=== PATIENT | female | born 1955 | race Caucasian/White ===

== ENCOUNTER 2020-05-20 05:14 | Inpatient (IN) ==
--- NOTE | 2020-05-01 14:24 | PAT Medication Instructions ---
Medication Instructions Date of Service May 01, 2020 Home Medications calcium 500 mg PO QAM glucos sul [id number]-Mn [Glucosamine Chondroitin] 1 cap PO QAM sodium hyaluronate [Hyaluronic Acid (sodium)] 20 mg PO QAM STOP taking 2 weeks before surgery If surgery is within 2 weeks, stop taking as soon as possible. glucos sul [id number]-C-Mn [Glucosamine Chondroitin] 1 cap PO QAM sodium hyaluronate [Hyaluronic Acid (sodium)] 20 mg PO QAM DO NOT take the morning of surgery calcium 500 mg PO QAM Other Notes If you have any questions please call us at [phone] or [phone] or [phone] or [phone]
--- NOTE | 2020-05-04 14:38 | Anesthesiology Consultation ---
Date of Service May 04, 2020 Assessment & Plan (1) Encounter for pre-operative examination: - Per assessment on 05/04: Travel screen- lives in [facility]. Return from travel to [place], [place] 04/18. No known COVID-19 positive contacts or current COVID-19 related symptoms. Surgeon arranging preop COVID testing. Awaiting results. - LUE limb restriction s/p left lumpectomy Chart Review Chart Review: Acceptable Risk for Surgery (pending preop labs (done at [facility])) and Patient seen in Pre Admission Testing Teaching & Discussion Pre-Anesthesia Teaching/Discussion Notes: Instructed NPO after midnight before surgery,except medications with 15 cc of water. Medication instructions provided according to the PAT guidelines. History Surgery Operation Date: 05/20/20 12:00 Proposed Procedures p Right Ankle Total Ankle Arthroplasty, - Jose Alejandro Quinn DO s Percutaneous Tendon Achilles Lengthening, Application of Platelet-Rich - Jose Alejandro Quinn DO Height/Weight Height: 5 ft 4 in Weight: 113.7 kg Allergies Allergy/AdvReac Type Severity Reaction Status Date / Time paclitaxel Allergy Intermediate numbness Verified 05/04/20 15:44 in fingers/feet Medications Home Medications Medication Instructions Recorded Confirmed Last Taken calcium 500 mg PO QAM 04/16/20 04/16/20 Unknown glucos sul [id number]-C-Mn 1 cap PO QAM 04/16/20 04/16/20 Unknown [Glucosamine Chondroitin] sodium hyaluronate [Hyaluronic 20 mg PO QAM 04/16/20 04/16/20 Unknown Acid (sodium)] Past Medical History Medical History Heartburn controlled History of TMJ disorder HX: breast cancer left s/p lumpectomy, chemo, XRT Osteoarthritis Peripheral neuropathy mild Prediabetes Sleep apnea CPAP Exercise / Class Metabolic Activity III < 4 Walking/Shop/Light housework Past Family History Family History Father Family history of diabetes mellitus Past Surgical History Surgical History H/O total hysterectomy History of carpal tunnel release RT/LEFT History of section X 1 History of cholecystectomy History of colonoscopy Hx of lumpectomy LEFT [place] teeth removed Past Anesthesia History No Hx of Anesthesia Complications and No Family Hx of Anesthesia Complications History of PONV No Hx of PONV and No Hx of Motion Sickness Social History Smoking Status: Never smoker Do You Dip or Chew Tobacco: No Hx Alcohol Use: Yes Alcohol type: beer and hard liquor alcohol intake frequency: a few times a week Hx Substance Use: No substance use type: does not use Review of Systems Patient denies chest pain, shortness of breath, dyspnea on exertion, joint pain, reflux, cough, wheezing, palpitations. Physical Exam Vital Signs VITALS BP 130/71 P 73 TEMP 98.0 SP02 97%RA RESP 18 PHYSICAL Full neck and c-spine range of motion. Full TMJ range of motion. TMD 3.5 finger breaths Mallampati Score 3 Dentition: 3 missing teeth sides/molars, few crowns upper right side Lungs: clear throughout to auscultation Cardiac: regular rate and rhythm, no murmurs noted Spine: normal Carotid arteries: negative bruit Extremities: no edema Testing Laboratory Results Blood Type A Positive 05/04/20 15:01 Antibody Screen NEGATIVE 05/04/20 15:01 Electrocardiogram Date: 05/04/20 NSR at 71bpm. unconfirmed report. Chest X-Ray Date: 05/04/20 Findings: + NAD
--- NOTE | 2020-05-04 15:42 | XRay Report ---
XR chest Pre-admission PA/Lat CLINICAL HISTORY: Preoperative chest COMPARISON STUDY: No previous studies for comparison. FINDINGS: The cardiac and mediastinal contours are normal. There is no evidence of focal pulmonary co nsolidation. There is no evidence of failure. No pleural effusions are visualized.[ IMPRESSION: No active disease in the chest. ACT 112: Negative or not required by law. Electronically signed by: Parminder Chapa M.D. 05/04/2020 3:40 PM
--- NOTE | 2020-05-05 21:57 | Electrocardiogram Report ---
Test Reason : Blood Pressure : / mmHG Vent. Rate : 071 BPM Atrial Rate : 071 BPM P-R Int : 176 ms QRS Dur : 086 ms QT Int : 412 ms P-R-T Axes : 063 045 042 degrees QTc Int : 447 ms Normal sinus rhythm Normal ECG No previous ECGs available Confirmed by Liang Carr ([id number]) on 05/05/2020 9:56:43 PM Referred By: Jose Alejandro Quinn Confirmed By:Liang Carr
--- NOTE | 2020-05-20 05:55 | History & Physical Report ---
Date of Service May 20, 2020 Assessment & Plan (1) Primary osteoarthritis, right ankle and foot: Schedule a Right Ankle Total Ankle Arthroplasty, Percutaneous Tendon Achilles Lengthening, Application of Platelet Rich Plasma for 05.20.2020. All potential risks, benefits, complications, alternatives, and rehab have been discussed with the patient and she wishes to proceed. Plan for ASA 81 mg BID x 30 days post op for DVT prophylaxis. (2) Contracture of right Achilles tendon: History of Present Illness Chief Complaint: right ankle pain Primary Care Provider: Gray Drake PA-C This is a patient with a long hx of right ankle pain. She was treated conservatively for right ankle osteoarthritis which was beneficial for a long time. However, she has failed all conservative management. She is now being set up for surgical tx. Allergies Allergy/AdvReac Type Severity Reaction Status Date / Time paclitaxel Allergy Intermediate numbness Verified 05/20/20 05:56 in fingers/feet Home Medications Home Medications Medication Instructions Recorded Confirmed Type calcium 500 mg PO QAM 04/16/20 04/16/20 History glucos sul [id number]-C-Mn 1 cap PO QAM 04/16/20 04/16/20 History [Glucosamine Chondroitin] sodium hyaluronate [Hyaluronic 20 mg PO QAM 04/16/20 04/16/20 History Acid (sodium)] ibuprofen-diphenhydramine HCl 1 cap PO HS PRN 05/20/20 05/20/20 History [Ibuprofen PM] Past Med/Surg History Medical History Heartburn controlled History of TMJ disorder HX: breast cancer left s/p lumpectomy, chemo, XRT Osteoarthritis Peripheral neuropathy mild Prediabetes Sleep apnea CPAP Surgical History H/O total hysterectomy History of carpal tunnel release RT/LEFT History of section X 1 History of cholecystectomy History of colonoscopy Hx of lumpectomy LEFT [place] teeth removed Family History Father Family history of diabetes mellitus Social History Smoking Status: Never smoker Second Hand Exposure: Yes ( A CHILD); Do You Dip or Chew Tobacco: No; Tobacco Cessation Education Requested by Patient: No Hx Alcohol Use: Yes Alcohol type: beer and hard liquor Hx Substance Use: No Preferred Language: Serbian Marzipan Molder Required: No Beliefs That Will Affect Care: None Current Living Situation: Spouse Feels Safe at Home: Yes Safety Concerns: Feels Safe At This Time Physical Exam Constitutional: well developed, well nourished and + obese; no acute distress ENMT: external ear and nose normal, oropharynx normal Neck: trachea midline, no thyromegaly Respiratory: normal respiratory effort, lungs clear to auscultation Cardiovascular: Rate/Rhythm: regular rate and regular rhythm Gastrointestinal (Abdomen): normal bowel sounds, soft, nontender, no hepatosplenomegaly Musculoskeletal: Gait: + antalgic gait (right) Ankle: + effusion (mild right), + limited ROM of ankle (right ankle, particularly dorsiflexion), + ankle ROM with crepitation (right) and + joint line tenderness (ankle) (anterior right ankle); no skin erythema and no ecchymosis Skin: no rashes, warm and dry Neurologic: normal touch/pain/proprioception Psychiatric: A+Ox3, euthymic affect Speech: normal rate/rhythm/volume of speech Lymphatic: no cervical or axillary lymphadenopathy
[2020-05-20] MEDS ORDERED: METOCLOPRAMIDE HCL 10 MG TABLET PO SCH (06:00)
[2020-05-20] MEDS ORDERED: FAMOTIDINE 20 MG TAB PO SCH (06:00)
[2020-05-20] MEDS ORDERED: CEFAZOLIN 2000MG 2,000 MG/15 ML SYR IV SCH (06:00)
[2020-05-20] MEDS ORDERED: OXYCODONE HCL 10 MG TABCR (OXYCONTIN) PO SCH (06:00)
[2020-05-20] MEDS ORDERED: dexAMETHasone 4 MG TAB PO SCH (06:00)
[2020-05-20] MEDS ORDERED: LR 15ML/HR IV SCH (06:00)
[2020-05-20] MEDS ORDERED: CeleBREX 200 MG CAP PO SCH (06:00)
[2020-05-20] MEDS ORDERED: GABAPENTIN 600 MG DOSE PO SCH (06:00)
[2020-05-20] MEDS ORDERED: ACETAMINOPHEN 500 MG TAB PO SCH (06:00)
[2020-05-20] MEDS ORDERED: ROPIVACAINE 0.5% 5 MG/ML 30 ML VIAL ONE (06:24)
[2020-05-20] MEDS ORDERED: ATROPINE SULFATE 0.1 MG/ML 10ML SYR IV PRN (06:45)
[2020-05-20] MEDS ORDERED: ONDANSETRON INJ 2 MG/ML 2 ML VIAL IV PRN ×2 (06:45→13:02)
[2020-05-20] MEDS ORDERED: fentaNYL citrate 100 MCG/2 ML VIAL IV PRN (06:45)
[2020-05-20] MEDS ORDERED: ePHEDrine sulfate 50 MG/ML AMP IV PRN (06:45)
[2020-05-20] MEDS ORDERED: HYDROmorphone INJ 1 MG/ML SYRINGE IV PRN (06:45)
[2020-05-20] MEDS ORDERED: ONDANSETRON INJ 2 MG/ML 2 ML VIAL ONE (06:48)
[2020-05-20] MEDS ORDERED: LIDOCAINE HCL 2% 2 ML VIAL/AMP(20MG/ML) INFIL ONE (06:48)
[2020-05-20] MEDS ORDERED: GLYCOPYRROLATE 0.2 MG/ML VIAL ONE (06:48)
[2020-05-20] MEDS ORDERED: PROPOFOL IV EMULSION 10 MG/ML 20 ML VIAL IV ONE (06:48)
[2020-05-20] MEDS ORDERED: DEXAMETHASONE SOD INJ 4 MG/ML VIAL ONE (06:48)
[2020-05-20] MEDS ORDERED: NEOSTIGMINE METHYLSULFATE 5 MG/5 ML SYR ONE (06:48)
[2020-05-20] MEDS ORDERED: fentaNYL citrate 100 MCG/2 ML VIAL ONE ×3 (06:50→10:49)
[2020-05-20] MEDS ORDERED: MIDAZOLAM HCL 1 MG/ML 2ML VIAL ONE (06:50)
[2020-05-20] MEDS ORDERED: THROMBIN 5000 UNITS KIT ONE (07:31)
[2020-05-20] MEDS ORDERED: BACITRACIN INJ 50,000 UNIT VIAL ONE (07:31)
[2020-05-20] MEDS ORDERED: CALCIUM CHLORIDE 10% 10 ML SYR IV ONE (07:31)
--- NOTE | 2020-05-20 08:25 | History & Physical Bridge Note ---
Date of Service May 20, 2020 History & Physical Bridge Note I have examined the patient, reviewed the History & Physical and in the interval since the performance of the History & Physical I have noted the following changes of clinical significance: no changes noted
--- NOTE | 2020-05-20 11:10 | Fluoroscopy Report ---
FL ankle RT 2V CLINICAL HISTORY: Ankle arthroplasty COMPARISON STUDY: None FLUOROSCOPY TIME: 71 seconds. NUMBER OF FLUOROSCOPIC IMAGES: 2 FINDINGS: 2 intraoperative fluoroscopic spot images reveal postsurgical changes of a total right ankl e arthroplasty. There are mild degenerative changes present within the subtalar joint. There is a jean-paul ntar calcaneal spur. Small lucencies within the distal tibia are likely postsurgical. IMPRESSION: Intraoperative fluoroscopic spot images demonstrating a total right ankle arthroplasty. ACT 112: Negative or not required by law. Electronically signed by: Parminder Chapa M.D. 05/20/2020 11:08 AM
--- NOTE | 2020-05-20 11:35 | Post Operative Brief Note ---
Immediate Post Op Note v1 Date of Surgery May 20, 2020 Pre & Post Diagnosis Operation Date: 05/20/20 07:30 Pre-Op Diagnosis: Right ankle osteoarthritis, degenerative arthritis ankle, Achilles tendon contracture right Ankle Post-Op Diagnosis: Right ankle osteoarthritis, degenerative arthritis ankle, Achilles tendon contracture right Ankle I identified the patient and participated in the time-out.: Yes Procedure Operation Date: 05/20/20 07:30 Actual Procedures p Right Ankle Total Ankle Arthroplasty with STAR total ankle replacement components: Extra small talus, medium tibial plate, 8 mm polyethylene,(Right) - Jose Alejandro Quinn DO s Right Percutaneous Tendon Achilles Lengthening, Application of Platelet Rich Plasma concentrate (Right) - Jose Alejandro Quinn DO Surgeon Jose Alejandro Quinn DO Supervisor Rod Placing Silvano Carvalho PA-C Estimated Blood Loss 10 Findings Consistent with Post-Op Diagnosis Specimens Bone and tissue right ankle Drains Hemovac Drain Anesthesia Type General Regional Complications none Disposition Accompanied Patient To Recovery: No Disposition: Recovery Room
--- NOTE | 2020-05-20 11:59 | Operative Report (OR) ---
DATE OF OPERATION: 05/20/2020 PREOPERATIVE DIAGNOSES: 1. Right ankle osteoarthritis. 2. Degenerative joint disease of the right ankle. 3. Achilles tendon contracture. POSTOPERATIVE DIAGNOSES: 1. Right ankle osteoarthritis. 2. Degenerative joint disease of the right ankle. 3. Achilles tendon contracture. PROCEDURES: 1. Right STAR total ankle replacement using sizes extra small talus, medium tibia and an 8 mm polyethylene. 2. Percutaneous tendo-Achilles lengthening. 3. Application of platelet rich plasma concentrate. SURGEON: Jose Alejandro Quinn DO. WASHING TUB OPERATOR: Silvano Carvalho PA-C who was present for patient positioning, sterile prep and drape, management of retractors and instruments. He was present through the critical portions of the case including wound closure, application of sterile dressing and transport of the patient to recovery. ANESTHESIA: General LMA with popliteal block with adductor canal. SPECIMENS: Bone and tissue, right ankle. DRAINS: One Hemovac. COMPLICATIONS: None. BLOOD LOSS: 10 mL. PERTINENT HISTORY: This is a 65-year-old woman who has had chronic progressive and worsening degenerative ankle arthritis over the last 5-7 years. She has attempted and failed conservative management including use of a brace, steroid injections, anti-inflammatories, rest, modification of activities, physician-directed home exercises, formalized physical therapy, ice, elevation and rest. She was using a cane over the last several months because the pain became so severe. Radiographs demonstrate complete plga-ru-erdg arthropathy of the right ankle, loss of joint space, marginal osteophytes, subchondral sclerosis and subchondral cysts. The patient was scheduled for surgery as indicated. DESCRIPTION OF PROCEDURE: The patient was taken to the operative suite after popliteal block was administered. The patient was placed supine on the operating room table. Tourniquet was applied over the right lower extremity. After the patient was anesthetized, LMA was placed. The right lower extremity was then sterilely prepped and draped in the usual sterile fashion [id number], elevated and exsanguinated with an Esmarch bandage, and tourniquet inflated to 350 mmHg. Next, a 15-blade scalpel incision made in the midline of the right ankle taking care to identify the tibialis anterior. The incision was made lateral to the tibialis anterior and centered over the extensor hallucis longus tendon. The incision was deepened through subcutaneous tissue. Meticulous hemostasis was achieved with electrocautery. Full-thickness skin flaps were developed. Superficial peroneal nerve was identified, retracted, and protected. Next, the extensor retinaculum was incised along the skin incision to the lateral aspect of the tibialis anterior. Tibialis anterior was retracted medially. The extensor hallucis longus and the neurovascular bundle beneath were retracted laterally. The small crossing vessels were cauterized. The anterior capsule was then incised in its midline and then elevated medially and laterally with electrocautery. Appropriate soft tissue retractors were placed carefully to maintain essentially zero skin tension on the superficial skin. After the capsule was elevated and retracted medially and laterally to visualize the medial and lateral malleoli clearly, rongeur was used to perform synovectomy and remove any excess debris and loose bodies. Next, the wound was irrigated and suctioned. Good visualization was obtained. At this point the anterior lip of hypertrophic bone was resected from the tibia with an osteotome and mallet followed by resection of a small osteophyte medially at the medial malleolus. Next, the tibial plafond could be clearly visualized. The neck of the talus was then rongeured down to the true neck of the talus after all hypertrophic osteophytes were excised. Next, attention was directed toward the proximal tibia at which point a 15-blade scalpel incision was made anterior of the tibial tubercle the inferior aspect using the external alignment guide as a guide for pin placement which was essentially in the midline of the tibia with a slight degree of plantar flexion. Guide was placed anteriorly using a small osteotome in the medial gutter of the ankle joint to signal helper in alignment. Next, the small 2.4 mm pin was placed adjacent to the tibial tubercle and the alignment guide was placed approximately one fingerbreadth above the soft tissue and fastened there at approximately four notches medialized proximally. Next, the T-handle guide was placed anteriorly and then this was aligned with the small osteotome and placed in the medial gutter of the ankle joint to make this parallel and then also the orientation of the second ray of the foot was used to guide as well. Next, the more proximal alignment block was pinned unicortically followed by placement of the lateral alignment guide on the tibial alignment jig and the T-handle was removed. Distal cutting block was then fastened to the distal aspect of the tibial alignment guide and then x-rays obtained in AP and lateral projections of the ankle and tibia assuring appropriate alignment of the tibial alignment guide and the tibial cutting block. After appropriate alignment was established, the distal cutting block was then pinned in place with two 2.4 mm pins, one in the proximal and then secondarily in the distal aspect of the tibial cutting guide and the tibial cutting guide was aligned at the inferior aspect at the level of the tibial plafond. Next, after the tibial cutting blocks were aligned and confirmed, the medial and lateral saw capture pins were placed followed by resection of the distal tibia with a sagittal saw. The pins were removed and the distal cutting guide was then removed followed by removal of the distal tibial cut fragment after it was morselized with a small osteotome and resected with a rongeur. A cervical lamina engraving press operator was placed in the ankle joint to open the ankle joint followed by resection of the posterior fragments from the distal tibia cut. Next, the talar cutting guide paddle was placed at the distal tibial cutting guide and fastened in place. The ankle was held in neutral dorsiflexion. Four pins were placed in the talar cutting block fixing the talus in appropriate alignment. Next, after the saw capture pins were placed, the sagittal saw was used to resect the superior aspect of the talus. The talar cutting block guide was then removed as well as the pins and talus. This was then followed by placement of datum guide which was initially placed as an extra small position with regard to position on the talus as well as orientation along the second ray. Central pin was placed and then the posterior capture cutting guide was attached and the anterior milling guide was also fastened with two football screws. Next, the anterior mill was used to resect the anterior aspect of the talar dome. Posterior cut was made. This jig was then removed followed by placement of the shoulder cutting guide and the reciprocating saw was just resect the shoulder portions of the talus using the laser cut line. This guide was then removed leaving the central pin followed by resection of the fragments using a small osteotome and mallet. This was then elevated and resected. Next, the window trial was firmly affixed to the superior aspect of the talus using fluoroscopic confirmation of alignment and position. Next, the central keel was drilled. The window trial was then removed following use of the central keel punch. This was also confirmed using fluoroscopic assistant plant controller. The wound was copiously irrigated with pulsatile lavage with Bacitracin additive followed by suctioning of the talar component. Platelet-rich plasma was injected at this time at the undersurface of the implant as well as in the talar dome. The final talar component was impacted in place with fluoroscopic assistance. Next, a trial polyethylene 6 mm was placed in the joint and the posterior aspect of the tibia was measured both medially and laterally. Appropriate size tibial drill guide was then placed and fastened with two pins. This was confirmed with x-ray and then the barrel drills x 2 were performed making certain to aim proximally. Next, the barrel cutting jig was then used to perform the final punch medially and laterally. The trial plate was then removed after appropriate sized polyethylene was sized. Next, the joint was copiously irrigated with pulsatile lavage followed by suctioning of all surfaces. The tibia was then injected with platelet-rich plasma as well as the superior aspect of the tibial final plate implant. This was then impacted in place with the trial polyethylene liner in place to ensure adequate positioning. Next, the final impactor was used to seat the tibial base tray flush with the anterior aspect of the tibia followed by bone grafting of the anterior barrel holes with local bone graft. This was impacted in place with a mallet and bone tamp. This then followed by confirmation with C-arm and then final polyethylene was inserted without difficulty. Excellent range of motion and stability was obtained. No liftoff was noted. The platelet-rich plasma was then sprayed within the joint and all surfaces and also into the subcutaneous tissue and deep soft tissue. A 10-[place] single-lumen Hemovac drain was placed anterolaterally followed by closure of the ankle joint capsule with #1 Vicryl. The extensor retinaculum was closed using interrupted 2-0 Vicryl, the dermis closed buried 3-0 Vicryl, and skin was closed using 4-0 nylon. A sterile compressive bulky Ashkan Black plaster splint was applied overwrapped with an Dennys wrap. Tourniquet was released. The patient was awakened and taken to recovery in stable condition. I attest to the content of the Intraoperative Record and any orders documented therein. Any exception s are noted below.
--- NOTE | 2020-05-20 12:43 | Anesthesiology Progress Note ---
Date of Service May 20, 2020 Anesthesia Post Procedure Vital Signs Vital Signs: Temp Pulse Pulse Resp BP Pulse Ox 05/20/20 12:30 90 13 147/86 H 98 05/20/20 12:25 97.2 F L 91 H 14 129/89 97 05/20/20 12:15 94 H 18 132/77 96 05/20/20 12:05 89 16 130/75 97 05/20/20 11:55 89 15 117/68 98 05/20/20 11:47 97.9 F 99 H 13 134/93 95 05/20/20 06:59 78 18 164/89 H 98 05/20/20 06:02 98.2 F 69 16 152/91 H 96 Pain Intensity Right Ankle: Pain Intensity: 0 Transfer of Care Handoff Completed per policy Notes Mental Status: alert / awake / arousable and participated in evaluation Patient Amnestic to Procedure: Yes Nausea / Vomiting: adequately controlled Pain: adequately controlled Airway Patency, RR, SpO2: stable & adequate BP & HR: stable & adequate Hydration State: stable & adequate Anesthetic Complications: no major complications apparent and Pt Satisfied with anesthetic care
--- NOTE | 2020-05-20 12:50 | XRay Report ---
XR ankle RT min 3V routine CLINICAL HISTORY: post op COMPARISON: None. DISCUSSION: There are postsurgical changes of a total right ankle arthroplasty. There are posterior s kin christiane. There is an overlying drain. There is a plantar calcaneal spur. There is an overlying ca st. IMPRESSION: Postsurgical changes of a total ankle arthroplasty. ACT 112: Negative or not required by law. Electronically signed by: Parminder Chapa M.D. 05/20/2020 12:48 PM
[2020-05-20] MEDS ORDERED: METOCLOPRAMIDE HCL INJ 5 MG/ML 2 ML VIAL IV PRN (13:02)
[2020-05-20] MEDS ORDERED: HYDROmorphone INJ 0.5 MG/0.5 ML SYR IV PRN (13:02)
[2020-05-20] MEDS ORDERED: NON-FORMULARY MEDICATION (Glucos Sul 2kcl-Msm-Chond-C-Mn [Glucosamine Chondroitin] 1 CAP) PO SCH (13:02)
[2020-05-20] MEDS ORDERED: OXYCODONE HCL IR 5 MG TAB (IMMEDIATE RELEASE) PO PRN (13:02)
[2020-05-20] MEDS ORDERED: bisacodyL 10 MG SUPP PR PRN (13:02)
[2020-05-20] MEDS ORDERED: SODIUM HYALURONATE PO SCH (13:02)
[2020-05-20] MEDS ORDERED: MAGNESIUM HYDROXIDE SUSP 30 ML UDC PO PRN (13:02)
[2020-05-20] MEDS ORDERED: NALOXONE HCL 0.4 MG/1 ML VIAL/CARP IV PRN (13:02)
[2020-05-20] MEDS: SODIUM CHLORIDE 0.9% 1000ML 1,000 ML IV SCH ×2 (14:22→23:42)
[2020-05-20] MEDS: DOCUSATE SODIUM 100 MG CAP PO SCH ×2 (14:22→20:13)
[2020-05-20] MEDS: ACETAMINOPHEN 500 MG TAB PO SCH ×2 (14:22→21:39)
[2020-05-20] MEDS: MULTIVITAMIN TAB PO SCH (14:22)
[2020-05-20] MEDS: KETOROLAC TROMETHAMINE 15 MG/ML VIAL IV SCH ×2 (14:23→20:14)
[2020-05-20] MEDS: CEFAZOLIN 2000MG 2,000 MG/15 ML SYR IV SCH ×2 (15:43→23:42)
[2020-05-20] MEDS ORDERED: SENNA 8.6 MG TAB PO SCH (21:00)
[2020-05-21] MEDS: KETOROLAC TROMETHAMINE 15 MG/ML VIAL IV SCH ×3 (03:11→14:02)
[2020-05-21 05:58] LABS: Hematocrit (blood only) 34.1 % (37-47); Hemoglobin 10.9 g/dL (12.0-16.0); Mean Corpuscular Hemoglobin 25.6 pg (25-34); Mean Corpuscular Volume 80.2 fL (80-100); Mean Platelet Volume 10.7 fL (7.4-10.4); Platelet Count 226 K/uL (130-400); RDW Coefficient of Variation 16.1 % (11.5-14.5); RDW Standard Deviation 47.2 fL (36.4-46.3); Red Blood Count 4.25 M/uL (4.2-5.4); White Blood Count 8.91 K/uL (4.8-10.8)
[2020-05-21 06:32] LABS: BUN Creatinine Ratio 21.9 (10-20); Calcium 8.3 mg/dl (8.5-10.1); Creatinine Clr Calc Pharmacy 98.8 ml/min; Est GFR (African American) 104.3
[2020-05-21] MEDS: ACETAMINOPHEN 500 MG TAB PO SCH ×2 (06:39→14:02)
[2020-05-21] MEDS: MULTIVITAMIN TAB PO SCH (08:10)
[2020-05-21] MEDS: DOCUSATE SODIUM 100 MG CAP PO SCH (08:10)
--- NOTE | 2020-05-21 08:30 | Orthopedic Progress Note ---
Date of Service May 21, 2020 Assessment & Plan (1) Primary osteoarthritis, right ankle and foot: Postop day #1 status post 1. Right STAR total ankle replacement using sizes extra small talus, medium tibia and an 8 mm polyethylene. 2. Percutaneous tendo-Achilles lengthening. 3. Application of platelet rich plasma concentrate PT/OT Pain controloxycodone, IV morphine, p.o. Tylenol. DVT prophylaxisASA 81 mg BID x 30 days post op and LADI stocking to the left lower extremity. Discharge planningHome with self-care, possibly later today. (2) Contracture of right Achilles tendon: Admission and Anticipated Discharge Date Admission Date: May 20, 2020 Subjective Doing well. No complaints of the right ankle. States the lower leg is still numb and she is unable to move her toes. She has maintain nonweightbearing on the right lower extremity. Denies chest pain, shortness of breath, lightheadedness. She states she recently talked to medical social worker and is planning to go home with self-care. Physical Exam Constitutional: WD/WN, vitals as above well developed, well nourished and + obese; no acute distress ENMT: external ear and nose normal, oropharynx normal Neck: trachea midline, no thyromegaly Respiratory: normal respiratory effort, lungs clear to auscultation Cardiovascular: Rate/Rhythm: regular rate and regular rhythm Gastrointestinal (Abdomen): normal bowel sounds, soft, nontender, no hepatosplenomegaly Musculoskeletal: Ankle: + surgical incision (Right ankle with splint clean/dry/intact.) and + surgical drain present (Right ankle: 270 cc total); no skin erythema and no ecchymosis Skin: no rashes, warm and dry Neurologic: Right lower leg: Still unable to wiggle toes. Numbness at all of the toes of the right foot. Cap refill is less than 2 seconds. Psychiatric: A+Ox3, euthymic affect Speech: normal rate/rhythm/volume of speech Lymphatic: no cervical or axillary lymphadenopathy Results & Data ([facility]) Vital Signs (Past 12 Hours) Vital Signs Temp Pulse Resp BP Pulse Ox 05/21/20 08:00 36.8 C 59 L 16 119/65 95 05/21/20 02:51 36.4 C L 70 17 123/73 95 05/20/20 23:25 36.8 C 75 18 124/73 97
[2020-05-21] MEDS ORDERED: CALCIUM CARBONATE 1250MG TAB PO SCH (09:00)
[2020-05-21] MEDS ORDERED: ASPIRIN 81 MG ECTAB PO SCH (09:00)
--- NOTE | 2020-05-22 09:12 | Discharge Summary ---
Date of Service May 22, 2020 Admission HPI Per Admitting Provider This is a patient with a long hx of right ankle pain. She was treated conservatively for right ankle osteoarthritis which was beneficial for a long time. However, she has failed all conservative management. She is now being set up for surgical tx. Principal Diagnosis Right ankle osteoarthritis Discharge Exam Constitutional WD/WN, vitals as above well developed, well nourished and + obese; no acute distress ENMT external ear and nose normal, oropharynx normal Neck trachea midline, no thyromegaly Respiratory normal respiratory effort, lungs clear to auscultation Cardiovascular Rate/Rhythm: regular rate and regular rhythm Gastrointestinal (Abdomen) normal bowel sounds, soft, nontender, no hepatosplenomegaly Musculoskeletal Gait: + antalgic gait (right) Ankle: + surgical incision (Right ankle with splint clean/dry/intact.) and + surgical drain present (Right ankle: 270 cc total); no skin erythema and no ecchymosis Skin no rashes, warm and dry Neurologic normal touch/pain/proprioception Psychiatric A+Ox3, euthymic affect Speech: normal rate/rhythm/volume of speech Lymphatic no cervical or axillary lymphadenopathy Discharge Data Allergies Allergy/AdvReac Type Severity Reaction Status Date / Time paclitaxel Allergy Intermediate numbness Verified 05/20/20 05:56 in fingers/feet Consultations 05/20/20 13:02 Consult Case Management - Discharge Planning Routine Procedures Performed Operation Date: 05/20/20 07:30 Actual Procedures p Right Ankle Total Ankle Arthroplasty,(Right) - Jose Alejandro Quinn DO s Right Percutaneous Tendon Achilles Lengthening, Application of Platelet Rich P lasma(Right) - Jose Alejandro Quinn DO Ordered Studies 05/20/20 05:00 US - OR guided needle placemen Routine 05/20/20 07:30 FL ankle RT 2V Routine FL fluoroscopy <1hr Routine Hospital Course (1) Primary osteoarthritis, right ankle and foot: Patient was admitted for the above-noted procedure. On postop day #1 she was doing well with pain control. She was able to maintain nonweightbearing on the right lower extremity. She was discharged later on postop day #1 after removal of the Hemovac drain. Postop day #1 status post 1. Right STAR total ankle replacement using sizes extra small talus, medium tibia and an 8 mm polyethylene. 2. Percutaneous tendo-Achilles lengthening. 3. Application of platelet rich plasma concentrate PT/OT Pain controloxycodone, IV morphine, p.o. Tylenol. DVT prophylaxisASA 81 mg BID x 30 days post op and LADI stocking to the left lower extremity. Discharge planningHome with self-care, possibly later today. (2) Contracture of right Achilles tendon: Total Time Total Time Spent Total Time Spent (In Minutes): 30 Total Time Includes: Examination of the Patient, Discharge Planning and M edication Reconciliation Discharge Plan Discharge Items Patient Disposition: Home - Self-Care Reason For Visit: Osteoarthritis, Right Ankle Discharge Diagnosis: right ankle osteoarthritis Activity: Per Instructions section Weightbearing: Right non-weightbearing Call non-emergency contact if: your pain is not controlled, your pain is worsening and your temperature is above 101 Follow-up/Referrals: Gray Drake PA-C [Primary Care Provider] - Diet: Regular Addtl Attending Provider Instructions: ACTIVITY RECOMMENDATIONS: Limitations: No weight bearing to affected limb at all times. SPECIAL CARE INSTRUCTIONS: * Take Aspirin 81 mg every 12 hours for 4 weeks. * Some drainage onto the dressing is normal and is no cause for alarm. * Some swelling is natural especially after walking. * When resting, keep your foot elevated above the level of your heart. * Call [facility] if you notice: -Increased drainage -Fever over 101 degrees F -Severe constant pain BANDAGE: * Leave bandage/cast in place unless otherwise directed. * Keep bandage/cast dry at all times. FOLLOW UP VISIT WITH DR. QUINN If appointment is not already scheduled: Please call [facility] after you get home today to schedule a follow-up appointment for [address] Quinn at . Pending Studies at Discharge: No Stand-Alone Forms: [facility] [employer], Opioid Pain Management Medications and DC Order Prescriptions: New acetaminophen 500 mg Tablet 1,000 mg PO Q8 Qty: 100 RF: 0 oxycodone 5 mg Tablet 5 - 10 mg PO Q4H MDD 6 PRN (Reason: pain) Qty: 20 RF: 0 aspirin 81 mg tablet,delayed release (DR/EC) 81 mg PO BID Qty: 60 RF: 0 Continued calcium 500 mg Tablet 500 mg PO QAM RF: 0 sodium hyaluronate 20 mg Capsule 20 mg PO QAM RF: 0 Glucosamine Chondroitin 550-30-1 mg Capsule 1 cap PO QAM RF: 0 Ibuprofen PM 200-25 mg Capsule 1 cap PO HS PRN (Reason: Pain) RF: 0 Discharge Orders: Discharge Order (Routine); Ordered 05/21/20 Ordered By: Silvano Collado/Other Patient Handouts: DVT Post Op Prevention Admission Data Admit Date/Time: 05/20/20 11:52 Attending Provider: Jose Alejandro Quinn Admit Provider: Jose Alejandro Quinn Primary Care Provider: Gray Drake Other Interventions: Discharge Summary Assessment (RN) Last Done: 05/21/20 12:51
== END 2020-05-21 16:48 | disposition home or self-care (01) | DRG 469 ==
LOC: ASU 05:14 → 3E 11:52